=== PATIENT | male | born 1960 | race Caucasian/White ===

== ENCOUNTER → 2017-07-31 10:37 | Outpatient (CLI) | payer OTHER, SELFPAY ==
--- NOTE | 2017-07-31 10:39 | VDLE_ITS ---
Reason For Study: swelling RIGHT LEFT GSV is normal. CFV is compressible, spontaneous, phasic, CFV is compressible, spontaneous, phasic, competent, and demonstrates normal competent and demonstrates normal augmentation. augmentation. FV is compressible, spontaneous, phasic, competent and demonstrates normal augmentation. POP V is compressible, spontaneous, phasic, competent and demonstrates normal augmentation. T/P Trunk is compressible. PTV is compressible. RT PerV is compressible. Heterogeneous are in the calf measuring 1.89 x 5.26 cm in short. Area is too large to measure in long. Area is nonvascular. Procedure Exam performed in department. The exam was diagnostic. A preliminary report was called and/or faxed to Dr. Schuster. Interpretation Summary Deep veins of the right lower extremity are patent and compressible segmentally. There is no evidence of right lower extremity deep vein thrombosis. Valvular competence appears intact within the proximal deep venous system on the right . The right greater saphenous vein appears patent and compressible segmentally. A large, non-vascular, heterogeneous area is noted in the right calf, measuring 1.89 cm x 5.26 cm in short axis and too large to measure in long axis. This may represent a seroma or hematoma. Clinical correlation is advised. Ordering Physician: Willie Schuster Performed By: Corbin Marcano RVT
== END ==
PROVIDERS: Visit Provider Specialist
DX: R22.41 Localized swelling, mass and lump, right lower limb (principal)
CPT/HCPCS: 93971